=== PATIENT | male | born 1985 | race Caucasian/White ===

== ENCOUNTER 2020-12-16 16:42 | Emergency (ER) | payer SELFPAY ==
[2020-12-16] MEDS ORDERED: Sodium Chloride 0.9% 2.5 ML Syringe FLUSH PRN (16:44)
[2020-12-16] MEDS ORDERED: Sodium Chloride 0.9% 10 ML Syringe FLUSH PRN (16:44)
[2020-12-16] MEDS ORDERED: HYDROmorphone 1 MG/ML Syringe IVPUSH ONE (16:45)
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
--- NOTE | 2020-12-16 17:10 | CR ---
INDICATION: Trauma. Fall. Left ankle pain. TECHNIQUE: Two views of the left ankle. FINDINGS: Acute complete comminuted angulated displaced fractures of the distal left tibia and fibula with disruption of the distal syndesmosis. It is uncertain if the overlying skin has been compromised or not. Please correlate clinically. The tibiotalar joint space is intact. Obvious soft tissue swelling. IMPRESSION: Acute complete comminuted overriding displaced fractures the distal left tibia and fibula. Orthopedic consultation is warranted. Dictated by Benny Gibson MD @ 12/16/2020 5:08:[address] Benny Gibson @ Dec 16 2020 5:08PM
[2020-12-16] MEDS ORDERED: Metoclopramide 10 MG Tab ONE (17:16)
[2020-12-16] MEDS ORDERED: Propofol 200 MG/20 ML SDV ONE (17:16)
[2020-12-16] MEDS ORDERED: Metoclopramide 10 MG/2 ML SDV ONE (17:17)
[2020-12-16 17:26] LABS: CARBON DIOXIDE,CO2 27.1 mmol/L (21.0-32.0); POTASSIUM,K 3.6 mmol/L (3.5-5.1)
[2020-12-16] MEDS ORDERED: Ondansetron 4 MG/2 ML SDV ONE (17:26)
--- NOTE | 2020-12-16 17:49 | PCM.POSTAN ---
POST ANESTHESIA ASSESSMENT - MENTAL STATUS Mental Status: Alert, Oriented - VITAL SIGNS Vital Signs: Last Vital Signs Temp 96.1 F L 12/16/20 16:44 Pulse 77 12/16/20 16:44 Resp 14 12/16/20 16:44 BP 138/75 12/16/20 16:44 Pulse Ox 95 12/16/20 16:44 - RESPIRATORY Respiratory Status: Respiratory Rate WNL, Airway Patent, O2 Saturation Stable - CARDIOVASCULAR CV Status: Pulse Rate WNL, Blood Pressure Stable - GASTROINTESTINAL GI Status: No Symptoms - POST OP HYDRATION Hydration Status: Adequate & Stable
--- NOTE | 2020-12-16 17:49 | PCM.PREANE ---
Preanesthetic Assessment - Anesthesia/Transfusion/Family Hx Anesthesia History: Prior Anesthesia Without Reaction Family History of Anesthesia Reaction: No - Review of Systems General: No Symptoms Pulmonary: No Symptoms Cardiovascular: No Symptoms Gastrointestinal: No Symptoms Neurological: No Symptoms Other: Reports: None - Physical Assessment NPO Status Date: 12/16/20 NPO Status Time: 17:00 Vital Signs: Last Vital Signs Temp 96.1 F L 12/16/20 16:44 Pulse 77 12/16/20 16:44 Resp 14 12/16/20 16:44 BP 138/75 12/16/20 16:44 Pulse Ox 95 12/16/20 16:44 Height: 5 ft 7 in Weight: 208 lb ASA Class: 2E Mental Status: Alert & Oriented x3 Dentition: Reports: Normal Dentition Thyro-Mental Finger Breadths: 4 Mouth Opening Finger Breadths: 4 ROM/Head Extension: Full Lungs: Clear to Auscultation, Normal Respiratory Effort Cardiovascular: Regular Rate, Regular Rhythm - Lab Values: Laboratory Last Values Sodium 140 mmol/L (136-148) 12/16/20 16:53 Potassium 3.6 mmol/L (3.5-5.1) 12/16/20 16:53 Chloride 106 mmol/L (98-107) 12/16/20 16:53 Carbon Dioxide 27.1 mmol/L (21.0-32.0) 12/16/20 16:53 BUN 22 mg/dL (7.0-18.0) H 12/16/20 16:53 Creatinine 1.5 mg/dL (0.8-1.3) H 12/16/20 16:53 Est Cr Clr Drug Dosing 64.26 mL/min 12/16/20 16:53 Estimated GFR (MDRD) 53.3 ml/min 12/16/20 16:53 Glucose 155 mg/dL (74-106) H 12/16/20 16:53 Calcium 8.5 mg/dL (8.5-10.1) 12/16/20 16:53 Total Bilirubin 0.5 mg/dL (0.2-1.0) 12/16/20 16:53 AST 20 IU/L (15-37) 12/16/20 16:53 ALT 53 IU/L (14-63) 12/16/20 16:53 Alkaline Phosphatase 49 U/L (46-116) 12/16/20 16:53 Total Protein 6.8 g/dL (6.4-8.2) 12/16/20 16:53 Albumin 3.6 g/dL (3.4-5.0) 12/16/20 16:53 Globulin 3.2 g/dL (2.6-4.0) 12/16/20 16:53 Albumin/Globulin Ratio 1.1 (0.9-1.6) 12/16/20 16:53 - Allergies Allergies/Adverse Reactions: Allergies Allergy/AdvReac Type Severity Reaction Status Date / Time No Known Allergies Allergy Verified 12/16/20 16:53 - Acknowledgements Anesthesia Type Planned: MAC Pt an Appropriate Candidate for the Planned Anesthesia: Yes Alternatives and Risks of Anesthesia Discussed w Pt/Guardian: Yes Pt/Guardian Understands and Agrees with Anesthesia Plan: Yes PreAnesthesia Questionnaire HEENT History: Reports: None Cardiovascular History: Reports: None Respiratory History: Reports: None Gastrointestinal History: Reports: None Genitourinary History: Reports: None Musculoskeletal History: Reports: None Neurological History: Reports: None Psychiatric History: Reports: None Endocrine/Metabolic History: Reports: None Hematologic History: Reports: None Immunologic History: Reports: None Oncologic (Cancer) History: Reports: None Dermatologic History: Reports: None - Infectious Disease History Infectious Disease History: Reports: None - Past Surgical History Head Surgeries/Procedures: Reports: None HEENT Surgical History: Reports: None Cardiovascular Surgical History: Reports: None Respiratory Surgical History: Reports: None GI Surgical History: Reports: Appendectomy Male Surgical History: Reports: None Endocrine Surgical History: Reports: None Neurological Surgical History: Reports: None Musculoskeletal Surgical History: Reports: None Oncologic Surgical History: Reports: None Dermatological Surgical History: Reports: None - SUBSTANCE USE Tobacco Use Status *Q: Never Tobacco User Second Hand Smoke Exposure: No Recreational Drug Use History: No - HOME MEDS Home Medications: Home Meds . [No Known Home Meds] 12/16/20 [History] - CURRENT (IN HOUSE) MEDS Current Meds: Current Medications Sodium Chloride (Sodium Chloride 0.9% 10 Ml Syringe) 10 ml FLUSH ASDIRECTED PRN PRN Reason: Keep Vein Open Last Admin: 12/16/20 16:49 Dose: 10 ml Documented by: Sodium Chloride (Sodium Chloride 0.9% 2.5 Ml Syringe) 2.5 ml FLUSH ASDIRECTED PRN PRN Reason: Keep Vein Open Last Admin: 12/16/20 16:50 Dose: 2.5 ml Documented by: Discontinued Medications Hydromorphone HCl (Hydromorphone 1 Mg/Ml Syringe) 1 mg IVPUSH ONETIME ONE Stop: 12/16/20 16:46 Last Admin: 12/16/20 16:49 Dose: 1 mg Documented by: Metoclopramide HCl (Metoclopramide 10 Mg Tab) Confirm Administered Dose 10 mg .ROUTE .STK-MED ONE Stop: 12/16/20 17:17 Metoclopramide HCl (Metoclopramide 10 Mg/2 Ml Sdv) Confirm Administered Dose 10 mg .ROUTE .STK-MED ONE Stop: 12/16/20 17:18 Ondansetron HCl (Ondansetron 4 Mg/2 Ml Sdv) Confirm Administered Dose 4 mg .ROUTE .STK-MED ONE Stop: 12/16/20 17:27 Propofol (Propofol 200 Mg/20 Ml Sdv) Confirm Administered Dose 200 mg .ROUTE .STK-MED ONE Stop: 12/16/20 17:17
--- NOTE | 2020-12-16 17:50 | PCM48HPAN ---
Post Anesthesia Note - EVALUATION WITHIN 48HRS OF ANESTHETIC Vital Signs in Normal Range: Yes Patient Participated in Evaluation: Yes Respiratory Function Stable: Yes Airway Patent: Yes Cardiovascular Function Stable: Yes Hydration Status Stable: Yes Pain Control Satisfactory: Yes Nausea and Vomiting Control Satisfactory: Yes Mental Status Recovered: Yes Vital Signs: Last Vital Signs Temp 96.1 F L 12/16/20 16:44 Pulse 77 12/16/20 16:44 Resp 14 12/16/20 16:44 BP 138/75 12/16/20 16:44 Pulse Ox 95 12/16/20 16:44
--- NOTE | 2020-12-16 17:53 | PCM.SN.2 ---
- Free Text/Narrative Note: Asked to provide sedation for closed reduction of dislocated left ankle fracture. Following administration of IV metoclopramide and IV propofol and using full monitoring, patients left ankle was reduced and splinted. Patient tolerated the procdure well. No complications. Care returned to RN in ER. 1800 12/16/2020 Juvencio Luna MD
--- NOTE | 2020-12-16 18:41 | CR ---
Indication: Postreduction. Technique: Two views of the left ankle. Comparison: Study from earlier the same day. The current study is dated 1735 hours. Findings: Re-identified is the comminuted distal tibial and distal fibular fracture. The alignment is closer to anatomic. The distal fracture fragments are still displaced approximately 1/2 shaft width posterior and medial in relation to the proximal fracture fragments of the tibia. At the level of the fibula, the distal fracture fragment is 1/2 shaft width posterior and approximately 2 shaft with medial in relation to the proximal fracture fragment. Impression: Partial reduction of the distal tibial and fibular fractures. Dictated by Sarah Chacon MD @ 12/16/2020 6:38:[address] Sarah Chacon @ Dec 16 2020 6:38PM
== END 2020-12-16 18:52 ==
LOC: MW.ED 16:42
DX: S82.402A Unspecified fracture of shaft of left fibula, initial encounter for closed fracture (principal); S82.202A Unspecified fracture of shaft of left tibia, initial encounter for closed fracture; V86.99XA Unspecified occupant of other special all-terrain or other off-road motor vehicle injured in nontraffic accident, initial encounter
CPT/HCPCS: 25565; 36415; 73600; 80053; 85025; 96374; 99152; 99285; J1170; 27810; 99284